=== PATIENT | female | born 1980 | race Caucasian/White ===

== ENCOUNTER 2016-05-02 18:02 | Emergency (ER) | payer OTHER ==
[~2016-05-02] VITALS: Ht 170.2 cm; Wt 96.4 kg
[2016-05-02 19:40] LABS: HEMATOCRIT 38.8 % (36.0-46.0); MCH 26.8 PG (29.0-34.0); MCHC 32.7 G/DL (30.0-36.0); MCV 81.9 FL (83-99); MEAN PLAT.VOLUME 9.4 uM^3 (9.5-12.4); PLATELET COUNT 473 K/uL (156-360); RBC DIS.WIDTH-CV 13.3 % (11.8-14.6); RBC DIS.WIDTH-SD 38.8 % (39-53); RED BLOOD COUNT 4.74 M/uL (3.80-5.20); WHITE BLOOD COUNT 9.5 K/uL (4.1-10.2)
[2016-05-02 20:04] LABS: CHLORIDE 106 mEq/L (99-109); POTASSIUM 3.6 mEq/L (3.7-5.4); SODIUM 138 mEq/L (136-147)
[2016-05-02 20:06] LABS: GLUCOSE 106 mg/dL (70-99)
[2016-05-02 20:07] LABS: ANION GAP 11 MEQ/L (2-14)
[2016-05-02 20:08] LABS: TOTAL BILIRUBIN 0.4 mg/dL (0.0-1.0)
[2016-05-02 20:09] LABS: ALKALINE PHOSPHATASE 119 IU/L (3-129)
[2016-05-02 20:10] LABS: GFR ESTIMATE (CALCULATED) > 59 mL/min/
[2016-05-02 20:11] LABS: QUANTITATIVE HCG < 4.0 MIU/ML; UREA NITROGEN (BUN) 8 mg/dL (9-23)
[2016-05-02 20:13] LABS: LIPASE 29 U/L (1.0-51.0)
[2016-05-02] MEDS ORDERED: KEFLEX500 MG PO (20:53)
[2016-05-02] MEDS ORDERED: ZOFRAN ODT4 MG PO (20:53)
[2016-05-02 20:59] VITALS: BP 129/88
== END 2016-05-02 21:01 | disposition home or self-care (01) ==
LOC: EME 18:02
PROVIDERS: Physician Assistant
DX: R11.2 Nausea with vomiting, unspecified (principal); R55 Syncope and collapse; J06.9 Acute upper respiratory infection, unspecified; Z86.73 Personal history of transient ischemic attack (TIA), and cerebral infarction without residual deficits
CPT/HCPCS: 80053; 83690; 84702; 85027; 99281; 99285; C9113; J2405; J7030